=== PATIENT | male | born 1945 | race Caucasian/White ===

== ENCOUNTER → 2017-04-15 | Outpatient (CLI) | payer MEDICARE, OTHER ==
[~2017-04-15] MED LIST: AMIO200T42 PO; AMLO10TA2 PO; APIX5TAB PO; ASPI-515 PO; DOXY100C2 PO; DUTA0.5C13 PO; FINA5TAB4 PO; FURO-92 PO; LEVO25TA2 PO; LEVO25TA4 PO; LEVO50TA5 PO; LOSA100T6 PO; LOVA10TA PO; METO25TA35 PO; METO50TA4 PO; MULT-717 PO; OXYC-302 PO; POTA20TA91 PO; TAMS0.4C2 PO; WARF5TAB7 PO
== END | disposition home or self-care (01) ==
LOC: CFH 08:23
PROVIDERS: ATTEND Internal Medicine Cardiovascular Disease
DX: I08.2 Rheumatic disorders of both aortic and tricuspid valves (principal); I10 Essential (primary) hypertension; E78.5 Hyperlipidemia, unspecified; Z87.891 Personal history of nicotine dependence
CPT/HCPCS: 93306

== ENCOUNTER → 2017-07-15 | Outpatient (CLI) | payer MEDICARE, OTHER | END | disposition home or self-care (01) | LOC: CFH 10:02 | PROVIDERS: ATTEND Internal Medicine | DX: I10 Essential (primary) hypertension (principal); I48.91 Unspecified atrial fibrillation | CPT/HCPCS: 71046 ==

== ENCOUNTER → 2017-12-25 | Outpatient (CLI) | payer MEDICARE, OTHER ==
[~2017-12-25] MED LIST changes: +WARF-36 PO; -WARF5TAB7 PO
== END | disposition home or self-care (01) ==
LOC: CFH 08:39
PROVIDERS: ATTEND Internal Medicine Cardiovascular Disease
DX: I10 Essential (primary) hypertension (principal); I34.8 Other nonrheumatic mitral valve disorders; I48.91 Unspecified atrial fibrillation; M47.899 Other spondylosis, site unspecified
CPT/HCPCS: 71046

== ENCOUNTER → 2018-02-04 | Outpatient (CLI) | payer MEDICARE, OTHER ==
[~2018-02-04] MED LIST changes: -DUTA0.5C13 PO; +DUTA0.5C15 PO
== END | disposition home or self-care (01) ==
LOC: CFH 07:14
PROVIDERS: ATTEND Internal Medicine
DX: M51.36 Other intervertebral disc degeneration, lumbar region (principal); M48.07 Spinal stenosis, lumbosacral region; M71.38 Other bursal cyst, other site
CPT/HCPCS: 72148

== ENCOUNTER → 2018-07-08 | Outpatient (CLI) | payer MEDICARE, OTHER ==
[~2018-07-08] MED LIST changes: -AMLO10TA2 PO; +AMLO10TA6 PO; -LOSA100T6 PO; +LOSA100T7 PO
== END | disposition home or self-care (01) ==
LOC: CFH 07:54
PROVIDERS: ATTEND Internal Medicine Cardiovascular Disease
DX: I08.2 Rheumatic disorders of both aortic and tricuspid valves (principal); E78.2 Mixed hyperlipidemia; I48.91 Unspecified atrial fibrillation; I10 Essential (primary) hypertension; Z87.891 Personal history of nicotine dependence
CPT/HCPCS: 71046; 93306

== ENCOUNTER 2018-09-10 08:34 | Emergency (ER) | payer MEDICARE, OTHER ==
[~2018-09-10] VITALS: Ht 177.8 cm; Wt 77.0 kg
[~2018-09-10 08:34] MED LIST changes: -AMLO10TA6 PO; +AMLO10TA8 PO; +LOSA100T14 PO; -LOSA100T7 PO
--- NOTE | 2018-09-10 09:17 | NUR ---
PT PRESENTED TO ED WITH LEFT RIB PAIN SINCE TODAY. PT HAD A MGLF AND FELL. PT WITH SMALL BRUISE ON LEFT LOWER HIP AREA. PT A&OX4. PT PLACED ON BP AND CONT. PULSE OXIMETER. ASSESSMENT COMPLETED. CALL LIGHT IN REACH
--- NOTE | 2018-09-10 10:34 | NUR ---
pt resting in bed. pt up for recheck.
[2018-09-10 10:36] VITALS: BP 119/79
== END 2018-09-10 11:17 | disposition home or self-care (01) ==
LOC: ED 10:12
DX: S30.1XXA Contusion of abdominal wall, initial encounter (principal); K59.00 Constipation, unspecified; E78.00 Pure hypercholesterolemia, unspecified; I48.91 Unspecified atrial fibrillation; I10 Essential (primary) hypertension; E07.9 Disorder of thyroid, unspecified; Z87.891 Personal history of nicotine dependence; W18.30XA Fall on same level, unspecified, initial encounter; Y93.89 Activity, other specified; Y92.89 Other specified places as the place of occurrence of the external cause; Y99.8 Other external cause status
CPT/HCPCS: 71046; 74021; 99283

== ENCOUNTER → 2018-12-30 | Outpatient (CLI) | payer MEDICARE, OTHER | END | disposition home or self-care (01) | LOC: CFH 07:46 | PROVIDERS: ATTEND Internal Medicine | DX: I08.1 Rheumatic disorders of both mitral and tricuspid valves (principal); I48.91 Unspecified atrial fibrillation; I10 Essential (primary) hypertension; E78.2 Mixed hyperlipidemia | CPT/HCPCS: 71046 ==

== ENCOUNTER 2019-07-07 10:32 | Outpatient (CLI) | payer MEDICARE, OTHER | END 2019-07-07 23:59 | disposition home or self-care (01) | LOC: CFH 10:32 | PROVIDERS: ATTEND Internal Medicine Cardiovascular Disease | DX: I36.1 Nonrheumatic tricuspid (valve) insufficiency (principal); E78.2 Mixed hyperlipidemia; I10 Essential (primary) hypertension; I34.8 Other nonrheumatic mitral valve disorders; I48.91 Unspecified atrial fibrillation; Z98.890 Other specified postprocedural states | CPT/HCPCS: 71046 ==

== ENCOUNTER → 2021-01-19 | Outpatient (CLI) | payer MEDICARE, OTHER ==
[~2021-01-19] MED LIST changes: +AMIO100T4 PO; +AMLO-211 PO; -AMLO10TA8 PO; -ASPI-515 PO; +ASPI-963 PO; -DUTA0.5C15 PO; +DUTA0.5C36 PO; +HYDR-2214 PO; +LOSA50TA14 PO; +LOVENOX; +METO25TA91 PO; -OXYC-302 PO; +OXYC1TAB14 PO
[2021-01-19 10:25] LABS: ALANINE AMINOTRANSFERASE 32 U/L (12-78); ALBUMIN 3.9 g/dL (3.4-5.0); ANION GAP 5 mmol/L (5-15); CALCIUM 8.8 mg/dL (8.5-10.1); CHLORIDE 111 mmol/L (98-107); CREATININE 0.93 mg/dL (0.7-1.3)
[2021-01-19 10:27] LABS: ALKALINE PHOSPHATASE 80 U/L (45-117); BILIRUBIN,TOTAL 0.9 mg/dL (0.2-1.0); TOTAL PROTEIN 7.3 g/dL (6.4-8.2)
== END | disposition home or self-care (01) ==
LOC: STAR 08:25
PROVIDERS: ATTEND Surgery
DX: Z01.818 Encounter for other preprocedural examination (principal); K43.2 Incisional hernia without obstruction or gangrene; I48.91 Unspecified atrial fibrillation
CPT/HCPCS: 36415; 80053; 93005

== ENCOUNTER 2021-01-23 05:20 | Day surgery (SDC) | payer MEDICARE, OTHER ==
[~2021-01-23] VITALS: Ht 177.8 cm; Wt 71.2 kg
[~2021-01-23 05:20] MED LIST changes: -HYDR-2214 PO
[2021-01-23] MEDS ORDERED: LABETALOL 5MG/ML, 20ML ONE ×2 (06:45→06:49)
[2021-01-23] MEDS ORDERED: cloniDINE/PF 100 MCG/ML, 10 ML ONE (06:49)
[2021-01-23] MEDS ORDERED: LIDOCAINE 1%, 20ML ONE (06:49)
[2021-01-23] MEDS ORDERED: EPINEPHRINE 1 MG/ML, 1ML ONE (06:50)
[2021-01-23] MEDS ORDERED: BUPIVACAINE/PF 0.5% ONE (06:50)
[2021-01-23 06:58] VITALS: BP 159/117
[2021-01-23] MEDS ORDERED: LACTATED RINGERS 1,000 ML IV SCH (07:00)
[2021-01-23] MEDS ORDERED: LABETALOL 5MG/ML, 20ML IVPush ONE (07:00)
[2021-01-23] MEDS ORDERED: CHLORHEXIDINE 15 ML UDC PO ONE (07:00)
[2021-01-23 07:06] LABS: INTERNATIONAL NORMALIZED RATIO 1.15 (0.93-1.1); PROTHROMBIN TIME 12.2 Seconds (9.6-11.5)
[2021-01-23] MEDS ORDERED: DEXAMETHASONE 4 MG/ML, 1ML ONE (07:25)
[2021-01-23] MEDS ORDERED: GLYCOPYRROLATE 0.2MG/1ML, 5ML ONE (07:25)
[2021-01-23] MEDS ORDERED: ROCURONIUM 10MG/ML,5ML ONE (07:25)
[2021-01-23] MEDS ORDERED: PROPOFOL 10 MG/ML, 20ML ONE (07:25)
[2021-01-23] MEDS ORDERED: LIDOCAINE-MPF 2% ,5ML ONE (07:25)
[2021-01-23] MEDS ORDERED: FENTANYL PF 100 MCG/2ML ONE ×2 (07:26→09:29)
[2021-01-23] MEDS ORDERED: CEFAZOLIN 1,000 MG ONE (07:38)
[2021-01-23] MEDS ORDERED: EPHEDRINE 50 MG/ML, 1ML ONE (08:40)
[2021-01-23] MEDS ORDERED: HYDR-2214 PO (09:06)
[2021-01-23] MEDS ORDERED: OXYcodone 5 MG/5 ML ORAL.SOL UDC ONE ×2 (09:29→10:30)
[2021-01-23] MEDS ORDERED: HALOPERIDOL 5 MG/ML IV PRN (09:30)
[2021-01-23] MEDS ORDERED: ALBUTEROL/IPRATROPIUM 2.5MG/0.5MG, 3 ML NPPB PRN (09:30)
[2021-01-23] MEDS ORDERED: METOPROLOL 1 MG/ML, 5ML IV PRN (09:30)
[2021-01-23] MEDS ORDERED: EPHEDRINE 50 MG/ML, 1ML IM PRN (09:30)
[2021-01-23] MEDS ORDERED: LORazepam 2 MG/ML, 1ML IVPush PRN (09:30)
[2021-01-23] MEDS ORDERED: HYDROcodone/APAP 7.5-325MG/15ML UDC PO PRN (09:30)
[2021-01-23] MEDS ORDERED: METOCLOPRAMIDE 5 MG/ML, 2ML IVPush PRN (09:30)
[2021-01-23] MEDS ORDERED: HYDROmorphone 1 MG/ML, 1ML INJ IVPush PRN (09:30)
[2021-01-23] MEDS ORDERED: hydrALAzine 20 MG/ML, 1ML IV PRN (09:30)
[2021-01-23] MEDS ORDERED: DIAZEPAM 5 MG/ML, 2ML IVPush PRN (09:30)
[2021-01-23] MEDS ORDERED: METHOCARBAMOL 1,000 MG in DEXTROSE 5% 100 ML IV PRN (09:30)
[2021-01-23] MEDS ORDERED: MEPERIDINE/PF 25MG/0.5ML IVPush PRN (09:30)
[2021-01-23] MEDS ORDERED: LABETALOL 5MG/ML, 20ML IV PRN (09:30)
[2021-01-23] MEDS ORDERED: EPHEDRINE 50 MG/ML, 1ML IVPush PRN (09:30)
[2021-01-23] MEDS ORDERED: DIPHENHYDRAMINE 50 MG/ML, 1ML IVPush PRN (09:30)
[2021-01-23] MEDS ORDERED: MIDAZOLAM 1 MG/ML, 2ML IV PRN (09:30)
[2021-01-23] MEDS ORDERED: ONDANSETRON 2MG/ML, 2ML IVPush PRN (09:30)
[2021-01-23] MEDS: FENTANYL PF 100 MCG/2ML IV PRN ×3 (09:31→09:42)
[2021-01-23] MEDS: OXYcodone 5 MG/5 ML ORAL.SOL UDC PO PRN ×3 (09:38→10:28)
== END 2021-01-23 15:45 | disposition home or self-care (01) ==
LOC: OUT 05:20
PROVIDERS: ATTEND Surgery
DX: K43.2 Incisional hernia without obstruction or gangrene (principal); I10 Essential (primary) hypertension; Z79.01 Long term (current) use of anticoagulants; Z79.890 Hormone replacement therapy; Z79.899 Other long term (current) drug therapy; Z85.528 Personal history of other malignant neoplasm of kidney; Z87.891 Personal history of nicotine dependence; Z99.3 Dependence on wheelchair; Z98.890 Other specified postprocedural states
CPT/HCPCS: 36415; 49654; 85610; C1781; J0171; J0690; J0735; J1100; J2704; J3010; J7120

== ENCOUNTER 2021-03-07 06:19 | Day surgery (SDC) | payer MEDICARE, OTHER ==
[~2021-03-07] VITALS: Ht 177.8 cm; Wt 70.5 kg
[~2021-03-07 06:19] MED LIST changes: -DOXY100C2 PO; +DOXY100C5 PO; +HYDR-2214 PO; +OXYC1TAB12 PO; -OXYC1TAB14 PO
[2021-03-07 06:58] VITALS: BP 156/110
[2021-03-07] MEDS ORDERED: PROPOFOL 10 MG/ML, 20ML ONE (07:21)
[2021-03-07 07:26] LABS: ANION GAP 7 mmol/L (5-15); CALCIUM 8.8 mg/dL (8.5-10.1); CHLORIDE 108 mmol/L (98-107); CREATININE 0.78 mg/dL (0.7-1.3)
== END 2021-03-07 09:08 | disposition home or self-care (01) ==
LOC: CACL 06:19
PROVIDERS: ATTEND Internal Medicine Cardiovascular Disease
DX: I48.0 Paroxysmal atrial fibrillation (principal); I10 Essential (primary) hypertension; E78.2 Mixed hyperlipidemia; Z79.01 Long term (current) use of anticoagulants; Z79.899 Other long term (current) drug therapy; Z72.89 Other problems related to lifestyle; Z87.891 Personal history of nicotine dependence
CPT/HCPCS: 36415; 80048; 92960; 93005; J2704